=== PATIENT | female | born 1935 | race Two or more races ===

== ENCOUNTER 2021-12-18 10:31 | Emergency (ER) | payer OTHER ==
[~2021-12-18] VITALS: Ht 152.4 cm; Wt 130.0 kg
[2021-12-18 11:11] LABS: Basophils # (auto) 0 10 ^3/uL (0-0.2); Basophils % (auto) 0.6 % (0.0-2.0); Eosinophils # (auto) 0 10 ^3/uL (0-0.8); Eosinophils % (auto) 0.2 % (0.0-7.0); Hematocrit 42.4 % (36.0-46.0); Hemoglobin 13.6 g/dL (12.2-16.2); Lymphocytes # (auto) 1.2 10 ^3/uL (0.4-5.4); Lymphocytes % (auto) 19.8 % (10.0-50.0); Mean Corpuscular Hemoglobin 28.8 pg (28.0-32.0); Mean Corpuscular Volume 90.2 fL (80.0-100.0); Monocytes # (auto) 0.5 10 ^3/uL (0-1.3); Monocytes % (auto) 9.2 % (0.0-12.0); Neutrophils # (auto) 4.2 10 ^3/uL (1.6-8.6); Neutrophils % (auto) 70.2 % (37.0-80.0); Red Cell Distribution Width 15.4 % (11.8-14.3)
[2021-12-18 11:20] LABS: Albumin 3.6 g/dL (3.4-5.0); Calcium 9.4 mg/dL (8.5-10.1); Potassium 3.4 mmol/L (3.5-5.1)
[2021-12-18 11:24] LABS: BUN/Creatinine Ratio 16.9; Bilirubin, Total 0.4 mg/dL (0.2-1.0); Total Protein 7.6 g/dL (6.4-8.2)
[2021-12-18] MEDS ORDERED: SODIUM CHLORIDE 0.9% 1,000 ML IV ONE (13:00)
[2021-12-18] MEDS ORDERED: ALUM & MAG HYDROX-SIMETH LIQ(MAALOX) 30 ML PO ONE (13:00)
[2021-12-18] MEDS ORDERED: DONNATAL 5ml ORAL Elix (BELLADONNA ALK-PHENOBARB) PO ONE (13:00)
[2021-12-18] MEDS ORDERED: PANTOPRAZOLE 40 MG TAB PO ONE (13:00)
[2021-12-18 13:40] LABS: Magnesium 2.2 mg/dL (1.6-2.6)
[2021-12-18 15:44] LABS: Urine Bacteria MANY /hpf (None Seen); Urine Blood Negative /uL (Negative); Urine Hyaline Cast FEW /lpf (0 - 2); Urine Mucus FEW (None Seen); Urine Specific Gravity 1.016 (1.001-1.035); Urine WBC 30 /hpf (0 - 5)
[2021-12-18 16:00] VITALS: BP 140/57
[2021-12-18] MEDS ORDERED: CIPR-173 PO (16:27)
[2021-12-18] MEDS ORDERED: PANT1INJ3 IV (16:27)
[2021-12-18] MEDS ORDERED: cefTRIAXone 1GM/50ML D5W 50 ML IV ONE (16:30)
[2021-12-22] MEDS ORDERED: PANT40TA2 PO (11:50)
[2021-12-24] MEDS ORDERED: PANT40TA2 PO (13:38)
== END 2021-12-18 17:03 | disposition home or self-care (01) ==
LOC: ER 10:31 → EDBD 10:31 → ER 17:03
DX: E11.65 Type 2 diabetes mellitus with hyperglycemia (principal); N39.0 Urinary tract infection, site not specified; I10 Essential (primary) hypertension; E87.6 Hypokalemia
CPT/HCPCS: 36415; 71046; 74176; 80053; 81001; 83690; 83735; 84484; 85025; 93005; 96361; 96365; 99285; J0696; J7030